=== PATIENT | male | born 1965 | race Caucasian/White ===

== ENCOUNTER 2024-07-27 22:54 | Emergency (ER) | payer OTHER, SELFPAY ==
[2024-07-27 22:55] VITALS: BP 116/83; PULSE 117; RESP 15; TEMP 36.6; O2SAT 99; BMI 19.7
--- NOTE | 2024-07-27 23:08 | RAD_ITS ---
INDICATION: pain FELT A POP IN LAT RT WRIST AT WORK, PAIN WHEN MOVING THUMB. HX RT WRIST ORIF X 29 YEARS AGO EXAMINATION/TECHNIQUE: X-RAY - RIGHT XR Hand Min 3 Views 3 VIEWS COMPARISON: No relevant prior comparison study available FINDINGS: BONES: Surgical hardware plate and side screws distal radius old fracture. No acute fracture demonstrated. JOINTS: No dislocation. SOFT TISSUES: Unremarkable. RAD/Hand Min 3 Views IMPRESSION: No evidence of fracture. ORIF distal radius fracture. Electronically Signed: Mara Feliciano MD at 23:46 EST ,
--- NOTE | 2024-07-27 23:08 | RAD_ITS ---
INDICATION: pain FELT A POP IN LAT RT WRIST AT WORK, PAIN WHEN MOVING THUMB. HX RT WRIST ORIF X 29 YEARS AGO EXAMINATION/TECHNIQUE: X-RAY - RIGHT XR Wrist Min 3 Views 3 VIEWS COMPARISON: No relevant prior comparison study available FINDINGS: BONES: Surgical hardware with plate and sidescrews in the distal radius transfixing an old healed distal radius fracture. No acute fracture demonstrated. Tiny sliver density adjacent to the base of the first metacarpal ulnar aspect likely soft tissue calcification, tiny avulsion fracture less likely. Mild joint space narrowing and subchondral sclerosis at the radiocarpal joint. JOINTS: No dislocation. SOFT TISSUES: Unremarkable. RAD/Wrist min 3 Views IMPRESSION: No evidence of acute fracture. ORIF distal radius fracture. Electronically Signed: Mara Feliciano MD at 23:45 EST ,
--- NOTE | 2024-07-28 00:39 | EDS_ITS ---
HPI History of Present Illness Chief Complaint: Upper Extremity Injury Informant: patient Narrative Narrative: Patient is a 58-year-old male with no significant past medical history. He states he is right-hand dominant. 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 He states while he was doing this he felt a pop. He states he noticed pain and swelling in the wrist and now has difficulty flexing his thumb. He denies any numbness or tingling or any other injury. However based on concern for potential fracture or tendon i njury he presents to the hospital for evaluation. Of note the patient does state he fractured his right forearm roughly 30 years ago which required plating. [facility] Medical History (Updated 07/28/24 @ 00:[address] Abdirizak Kerns, ) Hx of fracture of arm Home Medications ?Medication ?Instructions ?Recorded ?Last Taken ?Type NK 07/27/24 Unknown History Allergy/AdvReac Type Severity Reaction Status Date / Time No Known Allergies Allergy Verified 07/27/24 22:54 Social History Smoking Status: Current every day smoker tobacco type: cigarettes ROS ROS ED Constitutional Constitutional ED: Denies chills or fever(s) ENT ENT ED: Denies sore throat Cardiovascular Cardiovascular: Denies chest pain Respiratory/Chest Respiratory/Chest: Denies cough or dyspnea Gastrointestinal Gastrointestinal: Denies abdominal pain, diarrhea, nausea or vomiting Musculoskeletal Musculoskeletal: Reports other Details: Positive right thumb/wrist pain Integumentary Denies Abrasions or rash Neurologic Neurologic: Denies headache(s) or paresthesias Hematologic/Lymphatic Hematologic/Lymphatic: Denies easy bleeding or easy bruising EXAM Physical Exam Const Vital Signs: 07/27/24 22:55 Temperature 97.9 F Temperature Source Temporal Pulse Rate 117 H Respiratory Rate 15 Blood Pressure 116/83 H Blood Pressure Mean 94 Pulse Ox 99 Oxygen Delivery Method Room Air Positive well nourished and well developed General Appearance ED: well developed HEENT HEENT Narrative: Normocephalic atraumatic Eyes PERRL and EOMs intact bilaterally Neck full ROM and supple Resp normal respiratory effort and clear to auscultation bilaterally Cardio regular rate and regular rhythm Extremity Extremity Narrative: Right upper extremity is neurovascularly intact. Patient does have mild soft tissue swelling along the midportion of the right wrist on the volar side. There is mild pain with palpation at this site. There is no obvious bony deformity or joint effusion. The patient is able to perform opposition with his right thumb. However he cannot flex the thumb from the DIP joint which is concerning for a flexor tendon injury. Remainder of the exam is normal Neuro oriented x3 and CN's II-XII intact bilaterally Sensorium / Orientation: alert Psych mental status grossly normal Skin no rashes or lesions noted Trauma: Negative for no lacerations or abrasions MDM MDM MDM Narrative Medical decision making narrative: Patient presented to the ER with report of sudden onset pain and now lack of motion after having a pop sensation. There is concern for fracture versus dislocation versus flexor tendon injury and so therefore x-rays were obtained. X-rays revealed his previous ORIF but did not show fracture dislocation or retained foreign body. Physical exam is consistent with damage to the flexor Pollicis brevis. The case was discussed with plastic/hand surgeon Dr. Mena. As the patient is closed and neurovascular intact without signs of compartment syndrome or bony abnormality there is no need for emergent intervention. He recommends the patient be seen in his office so we can discuss potential surgical intervention over the next 7 days. The patient was placed in a thumb spica splint for stabilization and informed of his need to follow-up with Dr. Mena so that he can regain full function of his thumb. Patient understands the urgency of the follow-up but as he is closed and neurovascularly intact without acute bony injury or signs of infection he is otherwise safe for discharge History & Record Review Discussion w/independent historian: Patient Radiography Diagnostic Testing: Clinical Impression(s) from Imaging Studies Hand X-Ray 07/27/24 23:08 IMPRESSION: No evidence of fracture. ORIF distal radius fracture. Electronically Signed: Mara Feliciano MD at 23:46 EST , Wrist X-Ray 07/27/24 23:08 IMPRESSION: No evidence of acute fracture. ORIF distal radius fracture. Electronically Signed: Mara Feliciano MD at 23:45 EST , X-ray of the right hand and the right wrist as interpreted by the emergency medicine physician reveals the previous hardware to be intact and in place without obvious fracture or dislocation or foreign body Discharge Plan Triage Chief Complaint: Upper Extremity Injury ED Provider: Abdirizak Kerns Dx/Rx/DC Orders Clinical Impression: Flexor tendon rupture of hand Instructions: ED Tendon Rupture, Finger Prescriptions: No Action NK Primary Care Provider: Care Physician,No Primary Referrals: Shelton Mena MD [Med Staff - Active Staff] - Care Physician,No Primary [Primary Care Provider] - Activity Restrictions/Additional Instructions: Wear your thumb spica brace for stabilization. Follow-up with Dr. Mena as you will most likely need surgery to reattach your flexor tendon within the next week. Return to the ER should you have any further concerns Print Language: Andorran Disposition Disposition: Home, Self Care Discharge Date/Time: 07/28/24 01:10
== END 2024-07-28 01:10 | disposition home or self-care (01) ==
PROVIDERS: Emergency Provider Emergency Medicine; Visit Provider Emergency Medicine
DX: S66.011A Strain of long flexor muscle, fascia and tendon of right thumb at wrist and hand level, initial encounter (principal); X50.1XXA Overexertion from prolonged static or awkward postures, initial encounter; Y99.0 Civilian activity done for income or pay; F17.210 Nicotine dependence, cigarettes, uncomplicated
CPT/HCPCS: 73110; 73130; 99283

== ENCOUNTER → 2024-07-28 | Outpatient (CLI) | payer OTHER, SELFPAY ==
--- NOTE | 2024-07-28 14:20 | RAD_ITS ---
STUDY: X-RAY - ORBITS REASON FOR EXAM: Male, 58 years old. Ruleout Metal eyes for MRI TECHNIQUE: 2 view(s) of the orbits were obtained. COMPARISON: None. FINDINGS: Normal bilateral orbits without a metallic orbital foreign body. Normal visualized facial bones. Normal paranasal sinuses. The soft tissue structures are unremarkable. RAD/Orbits for Foreign Body IMPRESSION: 1. No demonstrated metallic orbital foreign body. The patient is cleared for an MRI examination. Electronically Signed: Angel Gonzalez MD at 14:59 EST ,
[2024-07-28 15:09] LABS: Anion Gap 6 (5-15); BUN 12 mg/dL (7-18); BUN/Creat Ratio 11.8 RATIO (10-20); Chloride 104 mmol/L (98-107); Creatinine, Serum 1.02 mg/dL (0.70-1.30); EST Glomerular Filtration Rate 80 mL/min (>60); Est Glom Filt Rate - Afr Amer 96 mL/min (>60); Glucose 101 mg/dL (74-106); Potassium 3.9 mmol/L (3.5-5.1); Sodium Level 137 mmol/L (136-145)
== END | disposition home or self-care (01) ==
PROVIDERS: Referring Provider Surgery Plastic and Reconstructive Surgery; Visit Provider Surgery Plastic and Reconstructive Surgery
DX: S66.819A Strain of other specified muscles, fascia and tendons at wrist and hand level, unspecified hand, initial encounter (principal); T15.90XA Foreign body on external eye, part unspecified, unspecified eye, initial encounter; X58.XXXA Exposure to other specified factors, initial encounter
CPT/HCPCS: 36415; 70030; 80048

== ENCOUNTER → 2024-07-29 | Outpatient (CLI) | payer OTHER, SELFPAY ==
--- NOTE | 2024-07-29 07:03 | MRI_ITS ---
STUDY: MRI UPPER EXTREMITY RIGHT FOREARM WITH AND WITHOUT CONTRAST REASON FOR EXAM: Male, 58 years old. Tendon Rupture, PT UNABLE TO MOVE THUMB TECHNIQUE: Standardized fat and water weighted pulse sequences were obtained in all 3 orthogonal planes, pre-and post contrast administration. IV 15CC Clariscan was administered for the contrast portion of the examination. COMPARISON: X-ray hand and wrist July 27, 2024 FINDINGS: There is susceptibility artifact associated with fixation plate and screws in the distal radius traversing healed fracture. There is fluid in the sheath of the flexor pollicis longus tendon. There is full-thickness tear at the level of the carpometacarpal articulation, series 10 images 8 and 9. Normal subcutis adipose space, without subcutis adipose space edema. There is no solid, cystic or lipomatous mass lesion. Normal extensor muscles and tendons of the forearm and wrist. Normal interosseous membrane. Normal radius and ulna, without a periosteal, cortical, or cancellous marrow abnormality. There is no abnormal contrast enhancement. MRI/Upper Ext No Joint W/WO Cont IMPRESSION: Flexor pollicis longus tendon tear. Electronically Signed: Thai Robertson MD at 10:15 EST ,
== END | disposition home or self-care (01) ==
LOC: MRI 06:54
PROVIDERS: Referring Provider Surgery Plastic and Reconstructive Surgery; Visit Provider Surgery Plastic and Reconstructive Surgery
DX: S66.811A Strain of other specified muscles, fascia and tendons at wrist and hand level, right hand, initial encounter (principal); S56.011A Strain of flexor muscle, fascia and tendon of right thumb at forearm level, initial encounter; X58.XXXA Exposure to other specified factors, initial encounter
CPT/HCPCS: 73220; A9575; A4216

== ENCOUNTER 2024-08-01 11:39 | Day surgery (SDC) | payer BC, SELFPAY ==
[2024-08-01] VITALS (10 sets, daily range): BP systolic 116–136; BP diastolic 69–89; PULSE 82–90; RESP 16–18; TEMP 36.3–36.7; O2SAT 97–99; BMI 19.1
[2024-08-01] MEDS: 0.9% Normal Saline (1000mL) 1,000 ML 15 ML IV (12:15)
--- NOTE | 2024-08-01 12:30 | RAD_ITS ---
STUDY: X-RAY - RIGHT WRIST REASON FOR EXAM: Male, 58 years old. Intraoperative digital documentation images. TECHNIQUE: 6 intraoperative digital documentation view(s) of the wrist were obtained. COMPARISON: July 27, 2024 FINDINGS: Intraoperative digital images show removal of plate and screw fixation of the distal radius. 20 images acquired. 7 images saved. Total exposure time 33 seconds. Longest exposure time 7 seconds. Total DAP 3.7759 cGy/cm2 Total Air Kerma 0.2248 mGy. RAD/Wrist 2 Views IMPRESSION: Intraoperative digital documentation views. Electronically Signed: Jorge Echevarria MD at 17:24 EST ,
--- NOTE | 2024-08-01 12:40 | PCM.PRE.AN2 ---
ASA Classification* ASA Classification ASA Classification: 2 Assessment & Plan Anesthesia* Anesthesia Assessment Anesthesia Assessment: Discussed sedation and/or anesthesia options, risks, benefits, and alternatives with patient/parents/legal guardian/POA. Questions invited. The patient/parents/legal guardian/POA seems to understand and agrees to proceed with anesthesia plan. Reviewed the physical assessment, medical history, allergy history and patient home medications list prior to surgery/procedure/anesthetic and documented any changes. Performed airway and anesthesia risk assessments. Anesthesia Type Anesthesia Type: General History Source History Obtained from:: Patient and Chart Anesthesia Focused Assessment* Temperature: 98.1 F Pulse Rate: 82 Blood Pressure: 135/89 Respiratory Rate: 16 Pulse Ox: 97 Oxygen Delivery Method: Room Air Airway Assessment Mouth opens: >3 cm Mallampati Score: III Teeth Condition: Dentures (Patient has full upper and lower dentures. They are out.) Neck Range of motion (ROM): Full ROM Focused Labs Anesthesia Preop lab: CBC CHEMISTRY Potassium 3.9 mmol/L (3.5-5.1) 07/28/24 14:11 Sodium 137 mmol/L (136-145) 07/28/24 14:11 BUN 12 mg/dL (7-18) 07/28/24 14:11 Creatinine 1.02 mg/dL (0.70-1.30) 07/28/24 14:11 Glucose 101 mg/dL (74-106) 07/28/24 14:11 COAG Pre-Assessment Diagnosis/Proposed Procedure Planned Operative Procedure(s): (R) Right wrist hardware removal, Repair of flexor tendon to thumb. 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 When Was Last Pacemaker Check QUESTION #4 FULL TEXT: You/Your Family Experience fever (hyperthermia) with Anesthesia Last Oral Intake Last Oral intake: Last Oral Intake NPO since 08:00 08/01/24 12:08 Meds taken in AM with sips of water? Meds patient instructed to take am of surgery Any additional information?: Yes NPO since: 08:00 (Patient water at 8 AM.) Meds taken in AM with sips of water?: No PONV PONV - pharmacy graduate intern: PONV - pharmacy graduate intern Female No 07/31/24 08:18 HX of Motion Sickness No 07/31/24 08:18 HX of N/V After Surgery No 07/31/24 08:18 Non-Smoker No 07/31/24 08:18 Duration of Surgery greater Yes 07/31/24 08:18 than 60 minutes Number of Risk Factors 1 07/31/24 08:18 PONV Score Low Risk 07/31/24 08:18 Height & Weight Height & Weight: Anesthesia: Height & Weight Height 6 ft 2 in 08/01/24 12:08 Weight: 67.585 kg 08/01/24 12:08 Body Mass Index (BMI) 19.1 08/01/24 12:08 Respiratory Assessment Respiratory Assessment - pharmacy graduate intern: Respiratory Tract Infection Hx - pharmacy graduate intern Hx Respiratory Tract Infection No 07/31/24 08:18 Any additional information?: Yes Hx Respiratory Tract Infection: Yes (Patient has a chronic cough. No recent infections.) STOP Sleep Apnea STOP Sleep Apnea - pharmacy graduate intern: STOP Sleep Apnea - pharmacy graduate intern Hx Hypertension No 07/31/24 08:18 Hx Sleep Apnea No 07/31/24 08:18 CPAP BIPAP Do you snore loudly (louder Yes 07/31/24 08:18 than talking or can be heard Do you often feel tired/ No 07/31/24 08:18 fatigued/ sleepy during daytime? Has anyone observed you stop No 07/31/24 08:18 breathing during sleep? STOP Results Negative 07/31/24 08:18 QUESTION #5 FULL TEXT : Do you snore loudly (louder than talking or can be heard through closed doors)? Tobacco Use History Tobacco Use History - pharmacy graduate intern: Tobacco Use History - pharmacy graduate intern Tobacco Use Smoking Status Current every day smoker 07/31/24 08:18 Hx Tobacco Use Yes 07/31/24 08:18 Years Smoking Packs Smoked per Day Smoking Cessation Date was within the last 15 years Hx Smoking Cessation Date Hx Smoking Cessation Counseling Any additional information?: Yes Smoking Status: Current every day smoker (Patient did not smoke today.) Hematologic Medial History Hematologic Hx - pharmacy graduate intern: Hematologic Medical Hx - sonography technologist Hx of Blood Transfusion No 07/31/24 08:18 Hx of Transfusion in last 3 No 07/31/24 08:18 Months Date of Last Transfusion (if within last 3 months) Ever experience any problems No 07/31/24 08:18 with transfusion(s)? Specify any problems Hx of Preganancy in last 3 N/A 07/31/24 08:18 Months Nurse Filling Out Transfusion MGRIFFITH 07/31/24 08:18 & Questions: Date: 07/31/24 07/31/24 08:18 Time: 08:21 07/31/24 08:18 Patient unable to answer at this time (ie. confused, unrespo /Reproduction History /Reproductive History - pharmacy graduate intern: /Reproductive Hx- pharmacy graduate intern Hx Now Gestational Age (in weeks): EDC: Hx Hx Para Hx Section SAB Active Medications Active Medications: Current Medications Generic Name Dose Route Start Last Admin Trade Name Freq PRN Reason Stop Dose Admin Sodium Chloride 1,000 mls @ 15 mls/hr 08/01/24 11:45 08/01/24 12:15 IV 08/07/24 01:04 15 mls/hr .Q48H ISAAC Administration Protocol [facility] Medical History Wears glasses Wears dentures History of alcohol abuse Injury of head and neck Difficulty swallowing Heartburn Gastric reflux Smoker Chronic cough Leg cramps Vision problems Hearing problem Anxiety Arthritis Hx of fracture of arm Home Medications ?Medication ?Instructions ?Recorded ?Last Taken ?Type acetaminophen 500 mg capsule 500 mg PO Q6H PRN pain 07/31/24 Unknown History loratadine 10 mg tablet (Claritin) 10 mg PO DAILY 07/31/24 Unknown History Allergy/AdvReac Type Severity Reaction Status Date / Time No Known Allergies Allergy Verified 08/01/24 12:08 Family History Mother Arthritis Diabetes Surgical History History of surgery History of eye surgery History of surgery on wrist Social History Smoking Status: Current every day smoker tobacco type: cigarettes Review of Systems (Anesthesia) ROS Narrative System reviewed and no additional complaints, except as documented.
--- NOTE | 2024-08-01 13:30 | FORE_PTH ---
PATIENT: ROMERO TORO LOC: [facility] [place] U#:[id number] AGE/SX: 58/M ROOM: RE08/01/[address]: Dr. Shelton Mena MD : 1965 BED: DIS: 08/01/2024 SPEC #: [id number] RECD: 08/01/24 18:36 STATUS: ENZO ALANNA #: [id number] MASSIEL: 08/01/24 13:[address]: Shelton Mena DEPT: SURGICAL PATHOLOGY RECD BY: Nora Breen ENTERED: 08/02/24 09:02 SP TYPE: FOREIGN B FRANTZ DR: No Primary Care Phys Tissues: FOREIGN BODY Procedures: Surgery Specimen Level I HEADER OPERATION: Right wrist hardware removal, repair of flexor tendon to thumb PRE-OP DIAGNOSIS: Rupture of flexure tendon of thumb, flexor tendon rupture of hand TISSUE SUBMITTED: Right wrist hardware - gross examination GROSS DIAGNOSIS Right wrist hardware: Orthopedic hardware, clinically from right wrist (gross only). CHARLENE. 08/02/2024 MICROSCOPIC DESCRIPTION Slides are reviewed. GROSS DESCRIPTION Received in fixative is one container labeled with the patient's name and designated Right wrist hardware. The specimen consists of metallic hardware consisting of six screws, three of them measuring 1.9cm in length and 0.2cm in diameter and flat metallic head measures 0.5cm in diameter and other three screws measuring 2.4cm in length and 0.2cm in diameter and flat metallic head measures 0.5cm in diameter. Also present in the container is a metallic plate with multiple holes measuring 7.2 cm in length and 1.0 to 2.0cm in width and 0.1cm in thickness. The specimen is for gross identification only. 08/02/2024 CPT:55498
--- NOTE | 2024-08-01 13:48 | HP.PCM.SX_ITS ---
HPI - General HPI Narrative Rafal Louis is a delightful 58-year-old male who is right-hand dominant and has a remote history (30 years ago) of a right distal radius fracture from softball that was treated with open reduction internal fixation with a volar plate who presents today as a referral from the emergency department (seen last night, 27 July 2024) for evaluation of a right thumb flexor digitorum profundus rupture. Patient was at work (works at [employer]) using a screwdriver and felt a pop in his wrist. No history of inflammatory arthritis. He was not having any pain before this problem. He is now having some pain in his base of thumb and wrist, and has noticed a slight amount of swelling. He is a half a pack a day smoker (discussed smoking cessation and wound healing problems with smoking). The patient reports that they do not have any personal or family history of bleeding or clotting disorders. No personal or family history of problems with anesthesia. Current Encounter (DATE OF SURGERY H&P UPDATE): I saw and examined the patient this morning in pre-operative holding. We discussed risks and benefits of today's surgery and they would like to proceed. NO CHANGE in health history since last seen and evaluated. Ready to proceed with surgery. [facility] Medical History Wears glasses Wears dentures History of alcohol abuse Injury of head and neck Difficulty swallowing Heartburn Gastric reflux Smoker Chronic cough Leg cramps Vision problems Hearing problem Anxiety Arthritis Hx of fracture of arm Home Medications ?Medication ?Instructions ?Recorded ?Last Taken ?Type acetaminophen 500 mg capsule 500 mg PO Q6H PRN pain 07/31/24 Unknown History loratadine 10 mg tablet (Claritin) 10 mg PO DAILY 07/31/24 Unknown History Allergy/AdvReac Type Severity Reaction Status Date / Time No Known Allergies Allergy Verified 08/01/24 12:08 Family History Mother Arthritis Diabetes Surgical History History of surgery History of eye surgery History of surgery on wrist Social History Smoking Status: Current every day smoker (Patient did not smoke today.) tobacco type: cigarettes Vital Signs Vital Signs Vital Signs: 08/01/24 12:08 08/01/24 12:08 08/01/24 12:46 Temperature 98.1 F 98.1 F Temperature Source Temporal Pulse Rate 82 82 Respiratory Rate 16 16 Respiratory Pattern Normal Blood Pressure 135/89 H 135/89 H Blood Pressure Mean 104 Blood Pressure Source Monitor Blood Pressure Position Semi-Fowlers Blood Pressure Location Left Arm Pulse Ox 97 97 Oxygen Delivery Method Room Air Room Air Weight Weight: 149 lb Body Mass Index (BMI) 19.1 Physical Exam Narrative Right Upper Extremity Inspection: Well healed scars from direct carpal tunnel incision and forearm incision over center of forearm (not Devon approach). Palpation: Slight tenderness to palpation in the palm/thenar eminence and volar wrist. Motor: Able to bend and extend all MP, PIP, and DIP joints except for his IP joint of the right thumb (no flexion). Thenar eminence fires with opposition, 5+ APB Sensory: Intact to light touch on the radial and ulnar borders. Vascular: Finger tips are warm and well perfused with <2 second capillary refill. Assessment & Plan Assessment/Plan (1) Rupture of flexor tendon of thumb: (2) Flexor tendon rupture of hand: PLAN: Plan INTERVAL H&P PLAN, DATE OF SURGERY: We will proceed with surgery today. I talked the patient extensively about the risks of surgery, including bleeding, infection, damage to surrounding structures, surgical site dehiscence and wound formation, need for wound care, need for repeat operations, wound secondary to smoking (discussed smoking cessation), failure to obtain the desired result (failure to restore flexion of the thumb at the IP joint), fracture of the distal radius after plate removal (need for revision surgery for the bone), hardware failure and partial hardware break leading to retained hardware, rerupture of the flexor tendon following repair, need for grafting with an interposition tendon graft (palmaris longus), DVT/PE (Caprini score is 3), and the risks of anesthesia including . The overall benefits and the alternatives of this surgery were also discussed. All of their questions were answered, and they agreed to proceed with surgery. I believe that the plate may have contributed to the rupture, or alternatively an osteophyte may have caused the rupture. Tentative plan is for plate removal (to prevent further injury) and FPL repair (primarily or with interposition graft using palmaris longus as needed). Plan for surgery within 1 week. May have ruptured 2/2 an osteophyte more distal to the plate at the carpal bone level. Unclear. Cannot say one way or another if the plate contributed, but to prevent further problems (and with exposure needed anyway for repair of the FPL), I will plan for plate removal. I will attempt primary repair, but if attritional rupture and diminutive tendon, may need interposition graft with PL. May also need tendon transfer from index or long (FDS to FDP). Patient understanding with plan and consented. Understands all risks, benefits, and alternatives discussed today for reconstruction. Patient happy with above plan. Understands risks of fracture following plate removal, risks of repair and/or interposition graft failure with possible need for tendon transfer (FDS from index or long to restore function).
[2024-08-01] MEDS: Cefazolin 2 GM in Syringe IV (14:03)
[2024-08-01] MEDS: Sugammadex Sodium 200 MG/2 ML VIAL IV (16:47)
[2024-08-01] MEDS: Lidocaine 1% /Epi 1:100 (20ml) 20 ML Vial (17:15)
[2024-08-01] MEDS: Bupiv/Epi 0.25% 30 ML Vial (17:16)
--- NOTE | 2024-08-01 17:44 | PCM.POST.ANE ---
Anesthesia: Postop Eval I Current Vital Signs Temperature: 97.3 F Pulse Rate: 90 Blood Pressure: 120/82 Respiratory Rate: 18 Pulse Ox: 99 Assessment Airway patent: Yes Spontaneous unlabored respirations: Yes nausea: No Vomiting: No Anesthesia Complication: No Fluid Hydration Crystalloid volume administer (ml): 2,000 Total IV fluid infused: 2,000 Progress Note Anesthesia document: Postop Eval 1 completed: Yes
[2024-08-01] MEDS: oxyCODONE 5 MG Tablet PO (18:23)
[2024-08-01] MEDS: Ketorolac 30 MG/ML Syringe IV (18:30)
--- NOTE | 2024-08-01 20:05 | POSTOPAN2_ITS ---
Anesthesia Postop Eval I Sum Postop Eval Completion status Anesthesia document: Postop Eval 1 completed: Yes Anesthesia Postop Eval I Summary Anesthesia Postop Eval I Summary: Anesthesia Postop Eval I: Assessment Summary Airway patent Yes 08/01/24 17:44 [email or web address] Spontaneous unlabored Yes 08/01/24 17:44 [email or web address] RIGGER.[email or web address] respirations Mental status nausea No 08/01/24 17:44 [email or web address] RIGGER.[email or web address] Vomiting No 08/01/24 17:44 [email or web address].[email or web address] Anesthesia Postop Eval I: Fluid Summary Crystalloid volume administer 2,000 08/01/24 17:44 [email or web address].[email or web address] (ml) Colloids volume administered ( ml) Blood Product volume administered (ml) Total IV fluid infused 2,000 08/01/24 17:44 [email or web address] RIGGER.CSIR Anesthesia Postop Eval I: Summary Notes Anesthesia Complication No 08/01/24 17:44 [email or web address].CSIR Anesthesia Complication Comment: Post-operative progress note Anesthesia: Postop Eval II Evaluation Mental status: Awake and Calm Pain Level: 1 nausea: No Vomiting: No Complications Anesthesia Complication: No
--- NOTE | 2024-08-01 20:05 | PCM.POSTANE2 ---
Anesthesia Postop Eval I Sum Postop Eval Completion status Anesthesia document: Postop Eval 1 completed: Yes Anesthesia Postop Eval I Summary Anesthesia Postop Eval I Summary: Anesthesia Postop Eval I: Assessment Summary Airway patent Yes 08/01/24 17:44 INSTRUCTIONAL TECHNOLOGY TEACHER.CSIR Spontaneous unlabored Yes 08/01/24 17:44 INSTRUCTIONAL TECHNOLOGY TEACHER.CSIR respirations Mental status nausea No 08/01/24 17:44 INSTRUCTIONAL TECHNOLOGY TEACHER.CSIR Vomiting No 08/01/24 17:44 INSTRUCTIONAL TECHNOLOGY TEACHER.CSIR Anesthesia Postop Eval I: Fluid Summary Crystalloid volume administer 2,000 08/01/24 17:44 INSTRUCTIONAL TECHNOLOGY TEACHER.CSIR (ml) Colloids volume administered ( ml) Blood Product volume administered (ml) Total IV fluid infused 2,000 08/01/24 17:44 INSTRUCTIONAL TECHNOLOGY TEACHER.CSIR Anesthesia Postop Eval I: Summary Notes Anesthesia Complication No 08/01/24 17:44 INSTRUCTIONAL TECHNOLOGY TEACHER.CSIR Anesthesia Complication Comment: Post-operative progress note Anesthesia: Postop Eval II Evaluation Mental status: Awake and Calm Pain Level: 1 nausea: No Vomiting: No Complications Anesthesia Complication: No
--- NOTE | 2024-08-02 06:35 | OP.PCM_ITS ---
Operative Report (Standard) Operative Information Date of Procedure: 08/01/24 Pre-Operative Diagnosis: Right upper extremity flexor pollicis longus (FPL) rupture at the wrist level Post-Operative Diagnosis: Same Surgery/Procedure Performed: 1) Right distal radius volar plate removal (73119) 2) Right wrist open carpal tunnel release (81294) 3) Right thumb A1 tri release (CPT 79815) 4) Right flexor pollicis longus repair with palmaris tendon interposition graft (CPT 61613) buying intern: Yes Child Support Specialist: Bhakti Mar Tasks completed by fundraising assistant: Retracting Type of Anesthesia: General (10 cc of 0.25% Marcaine with 1:200,000 epinephrine ) RN Documented Start/Stop Times: Operation Date: 08/01/24 13:30 Case Time Into Pre-Op 08/01/24 11:44 Anesthesia Start 08/01/24 14:03 Into Room 08/01/24 14:03 Procedure Start 08/01/24 14:25 Procedure End 08/01/24 17:26 Anesthesia End 08/01/24 17:39 Out of Room 08/01/24 17:39 Into Recovery 08/01/24 17:40 Into Phase II Recovery 08/01/24 18:15 Out of Recovery 08/01/24 18:15 Out of Phase II 08/01/24 19:42 Procedure Start Time: 14:25 Procedure Stop Time: 17:26 Select all DRAINS/GRAFTS/IMPLANTS that apply: None Estimated Blood Loss: 10 cc Specimen collected: Yes Description of specimen(s) removed: Volar plate with 6 screws Description of surgery: Indications: Raafl Louis is a 58 YO male with past medical history of a right distal radius fracture open reduction and internal fixation ~30 years ago. On 27 Jul 2024, the patient felt a pop in his right wrist and was unable to bend his thumb interphalangeal joint. He was diagnosed with an FPL rupture. He presents today for plate removal and tendon reconstruction. He understands the risks, benefits, and alternatives to the procedure and would like to proceed. Procedure Details: Patient was correctly identified in preoperative holding and taken back to the operating room where he was administered general anesthesia. He was prepped and draped in sterile fashion and all proper timeouts were performed. A right arm tourniquet was applied. An Esmarch was used and the tourniquet was insufflated to 250 mmHg (tourniquet time was 1 hour 46-minutes total with 5-minute break at 1 hour). A volar Devon incision was used over the right flexor carpi radialis (FCR) tendon. Dissection was taken between the interval of the FCR and the radial artery. Within this interval was significant scarring and synovitis. There was no identifiable pronator quadratus at the base, and no clear flexor pollicis longus at this point. Scar was at the base of this interval and the plate was immediately below the scar. A [place] elevator was used to expose the plate with care taken to stay on the plate and elevate the scar tissue off of the plate. The screws and plate were removed from the distal radius and sent to pathology for gross identification. I then examined the distal radius under fluoroscopy and it appeared stable without any acute fractures. Then dissected ulnarly and was able to identify the palmar cutaneous branch of the median nerve approximately 5 cm from the wrist crease which was preserved and protected throughout the rest of the case. The rest of the median nerve was identified at the wrist and protected. Beneath the FCR at the wrist crease was an area of inflamed synovium which was dissected carefully. Within this scar and synovitis was the proximal stump of the flexor pollicis longus (FPL). It had frayed edges and a diminutive distal stump. Attention was then turned to finding the distal stump of the FPL. The MRI demonstrated that there may have been ruptured tendon at the carpometacarpal junction. There was no identifiable distal tendon at the wrist within the volar Devon incision despite taking the incision more distal around the FCR. I therefore made the decision to open a June incision over the thumb with care taken to preserve the neurovascular bundles. The A1 tri of the thumb was released. Subsequently, with care taken to preserve and protect the median nerve including the palmar cutaneous branch, I extended the volar Devon transversely across the wrist and into an open carpal tunnel incision to release the carpal tunnel with a 15 blade scalpel. I was unable to pass the distal stump of the tendon which was on the radial side of the carpal tunnel, and could be passed easily, through with assistance via the A1 tri incision, back to its [place] location proximally. The tourniquet was let down and the wounds were irrigated and washed out with copious amounts normal saline. Just as the proximal portion of the FPL tendon stump was frayed, the distal portion was also diminutive, atrophied, and frayed. These portions were resected with a 10 blade scalpel back to healthy tendon on the proximal and distal ends. A free interposition palmaris longus tendon graft was then placed using the right palmaris longus (PL) which was on the ulnar border the incision (PL was dissected and then cut). A Pulvertaft weave was performed distally with 3 passes using the tendon passer and 4-0 FiberWire to reinforce the passes. I then placed one suture proximally between the [place] FDP and the PL so as to assess and adjust the tension. Using a checkpoint nerve stimulator on , I was able to stimulate the muscle belly of the FDP. Once I was satisfied with the tension (thumb flexion with appropriate wresting position), I completed the Pulvertaft weave with 3 passes proximally using the tendon passer and 4-0 FiberWire to reinforce the passes. Hemostasis was obtained with bipolar electrocautery and medium vascular clips. The June incision and the carpal tunnel incision were both closed with 3-0 nylon horizontal mattress suture. The volar Devon incision was closed with 3-0 Vicryl deep dermal sutures followed by horizontal mattress 3-0 nylon sutures. 20 cc of 0.25% Marcaine with 1-200,000 epinephrine was used for a local block. Xeroform, Webril, and a dorsal blocking thumb spica splint was applied with plaster. Post-operative plan: F/u in the office on 04 Aug 2024, with plan to start flexor tendon protocol with occupational therapy. Keep splint on and dry until this time. Surgical Findings: Rupture of the FPL at the level of the radial carpal joint Complications Complications: No Admit VTE Documentation VTE Present on Admission: No VTE Mechan Device Prophylaxis: SCD's
== END 2024-08-01 19:42 | disposition home or self-care (01) ==
LOC: SDC 11:42 → AC 11:42
PROVIDERS: Referring Provider Surgery Plastic and Reconstructive Surgery; Visit Provider Surgery Plastic and Reconstructive Surgery
PROC: (CPT 26352; principal; 2024-08-01 13:15)
DX: S56.211A Strain of other flexor muscle, fascia and tendon at forearm level, right arm, initial encounter (principal); S56.011A Strain of flexor muscle, fascia and tendon of right thumb at forearm level, initial encounter; X50.1XXA Overexertion from prolonged static or awkward postures, initial encounter; Y99.0 Civilian activity done for income or pay; Z71.6 Tobacco abuse counseling; F17.210 Nicotine dependence, cigarettes, uncomplicated
CPT/HCPCS: 26352; 64721; 26055; 20680; 01810; 73100; 76000; 88300; A4648; J2405

== ENCOUNTER 2024-10-26 11:30 | Outpatient (RCR) | payer BC, SELFPAY ==
--- NOTE | 2024-08-04 12:12 | HP.OTEVAL_ITS ---
Patient's Visit Information Visit Information Visit Information: ROMERO TORO is a 58 year old M, referred to Occupational Therapy by Dr. Shelton Mena MD, with a diagnosis of right FPL rupture. Date of Evaluation: 08/04/24 Occupational Therapist: Lesvia Patterson, GALLITO/Bonnie, CHT Subjective Subjective: This 58-year-old male was seen for OT eval with dx of right strain of flexor muscle, fascia and tendon FPL tendon at wrist level- pt states on Jul.27 while working he felt a snap in his wrist and realized his thumb was not working right. pt works at [employer]. pt states he was seen by Dr. Mena who recommended plate removal of old right distal radius ORIF and repair of the FPL. pt underwent sx. 08/01/24. procedure right FPL rupture at wrist level, right distal radius volar plate removal- right CTR, right thumb A1 tri release right FPL repair with palmaris tendon interposition graft . today pt demo with soft sx splint on - min. or trace swelling incision intact and healthy Pain right hand: Current Pain Intensity: 1 Pain Intensity Range: 0 and 1 ROM ROM Comments: PROM of right thumb IP 40* MP 30* no active ROM tested at this date. Strength Strength Comments: will test later date Sensation Sensation Comments: denies Quick DASH-Disab of Arm,Shoulder& Hand Quick DASH Score: 81.6650 Goals Goal:100% adherence to protocol: Yes Comment: following guidelines of FPL repair pg 226 in [facility] guidlines book Goal:Daily scar massage when approriate: Yes Goal:ROM equal to unaffected hand: Yes Goal:Photographic Specialist/Pinch strength at least 75% of unaffected hand: Yes Comment: will not initiate until week 8 or otherwise indicated by Goal:No pain with affected hand use: Yes Goal:Decrease scar hypersensitivity: Yes Rehabilitation General Assessment: Pt arrives 3 days s/p form FPL repair with use of palmaris tendon, right CTR and removal of volar plate. Pt demo need for skilled OT services 2x week for 12 weeks to return pt to functional use of right dominate hand. Today therapist khalida. custom orthosis ed, pt to use at all times. pt demo and communicated understanding- therapist ed. pt on edema control and guidelines of following FPL protocol. pt demo understanding and agree to POC. Rehabilitation Potential: Excellent Anticipated Interventions Anticipated Interventions: A/AAROM/PROM, Edema Control, Scar Care, Desensitization, Wound Care, Modalities, Orthoses, Joint Protection/Energy Conservation, Ergonomic Education and Education re Diagnosis Visit Plan Frequency: 2-3x /Week Duration: 3 Months General Plan: orthosis khalida. ed, pt on tendon healing. as well as use of orthosis at all times until pt is transitioned by protocol TEXT: Thank you for the opportunity to evaluate your patient. For Medicare and Medicare HMO plans, please review the plan of care and approve it. It will need to be FAXED BACK to us at [phone] for Medicare purposes. Please let me know if there are questions or concerns regarding this plan of care. Physician Signature: Date:___
--- NOTE | 2024-08-28 14:27 | HP.OTREVAL ---
Re-Evaluation Intro: Dr. Shelton Mena MD, It has been my pleasure to treat ROMERO TORO over the last 8 visits for right FPL rupture. Please see the progress note below for an update on the occupational therapy plan of care! Subjective Subjective: pt arrives 3 weeks 6 days s/p from a FPL repair and ORIF removal pt states he is in orthosis only when out of home and at night- not in splint much anymore- pt reports compliance of wrist ext and thumb flexion ex- Objective Objective/Function: right thumb IP flexion pt demo with scar adhesions limiting IP flexion with CMC and MP at 0* IP flexion is 25* with CMC in slight ext with MP flexion at 30* pt demo with a IP flexion of 40* Therapy started pt on blocking ex and pt can get more motion- pt was compensating with CMC and MP flexion to get his IP flexion- therapist ed. pt on proper position to get most out of FPL Plan Plan Frequency: 2-3x /Week Duration: 3 Months Plan: PROM of IP and MP to keep FPL from scaring Goals Goals Patient Goals: Use Hand/Wrist/Arm Normally Again Goal:100% adherence to protocol: Yes Goal:Daily scar massage when approriate: Yes Goal:ROM equal to unaffected hand: Yes Goal:Air Conditioning Manager/Pinch strength at least 75% of unaffected hand: Yes Goal:No pain with affected hand use: Yes Goal:Decrease scar hypersensitivity: Yes Anticipated Interventions Anticipated Interventions Anticipated Interventions: A/AAROM/PROM, Edema Control, Scar Care, Desensitization, Wound Care, Modalities, Orthoses, Joint Protection/Energy Conservation, Ergonomic Education and Education re Diagnosis Re-Evaluation Ending Re-evaluation ending: Please do not hesitate to contact me at [phone] by phone or if you have questions or concerns regarding this new plan of care! Sincerely, Lesvia Patterson, OTR/L, CHT
--- NOTE | 2024-10-19 12:33 | OTREVAL_ITS ---
Re-Evaluation Intro: Dr. Shelton Mena MD, It has been my pleasure to treat ROMERO TORO over the last 23 visits for right FPL rupture. Please see the progress note below for an update on the occupational therapy plan of care! Subjective Subjective: pt arrives to session 11 weeks 6 days s/p from FPL repair with ORIF removal Pt states soreness, nothing bad. Stated hand was inflamed over the weekend so pt decreased activity to reduce inflammation. Objective Objective/Function: -R primary substance abuse counselor strength 80# -R lateral pinch 16# -R Tripod- 18# -R wrist: 75/65 IP flexion 45 with opposition to LF IP flexion does reduce -with use- highest pain was 2- not very painful at all. -Scar is not sensitive anymore. possible some stitch festering - pt functional with strength and ROM - still smoking 1/2 a pk a day Plan Plan Frequency: 2-3x /Week Duration: 3 Months Visits in this POC: 3 months (2-3x week) Plan: cont. to strength as yeni Goals Goals Patient Goals: Use Hand/Wrist/Arm Normally Again Goal:100% adherence to protocol: Yes Goal:Daily scar massage when approriate: Yes Goal:ROM equal to unaffected hand: Yes Goal:Children'S Choir Director/Pinch strength at least 75% of unaffected hand: Yes Goal:No pain with affected hand use: Yes Goal:Decrease scar hypersensitivity: Yes Anticipated Interventions Anticipated Interventions Anticipated Interventions: A/AAROM/PROM, Edema Control, Scar Care, Desensitization, Wound Care, Modalities, Orthoses, Joint Protection/Energy Conservation, Ergonomic Education and Education re Diagnosis Re-Evaluation Ending Re-evaluation ending: Please do not hesitate to contact me at [phone] by phone or if you have questions or concerns regarding this new plan of care! Sincerely, Lesvia Patterson, OTR/L, CHT
--- NOTE | 2024-10-26 11:44 | HP.OTDCSUM ---
Discharge Summary D/C Summary: It has been my pleasure to treat ROMERO TORO under orders from Dr. Shelton Mena MD, for the diagnosis of right FPL rupture for a total of 25 visit(s). Please see the following information for a summary of their discharge status. Overall Improvement % Improvement: 95 Objective Objective/Function: -R harbour master strength 85# -R lateral pinch 18# -R Tripod- 18# -R wrist: 75/65 IP flexion 45 with opposition to LF, IP flexion does reduce. -with use- highest pain was 2- not very painful at all. -Scar is not sensitive anymore. pt functional with strength and ROM - still smoking 1/2 a pk a day Goals Patient Goals: Use Hand/Wrist/Arm Normally Again Goal:100% adherence to protocol: Yes Goal Progress: Goal Met Goal:Daily scar massage when approriate: Yes Goal Progress: Goal Met Goal:ROM equal to unaffected hand: Yes Goal Progress: Goal Met Goal:Turret Punch Operator/Pinch strength at least 75% of unaffected hand: Yes Goal Progress: Goal Met Goal:No pain with affected hand use: Yes Goal Progress: Goal Met Goal:Decrease scar hypersensitivity: Yes Goal Progress: Goal Met Plan Plan: D/C D/C Information Discharge Comments: pt was seen in OT for 25 sessions following a FDP repair and ORIF hardware removal. pt has regained ROM and strength to perform ADLs and IADLs at [facility]. pt states he is ready to go back to work. d/c sentence: If there are questions or concerns regarding this patient's occupational therapy, please fell free to call me at [phone]. Thank you for the referral of this patient. Sincerely, Lsevia Patterson, OTR/L, CHT
== END 2024-10-26 14:59 | disposition home or self-care (01) ==
LOC: OT 11:30
PROVIDERS: Referring Provider Surgery Plastic and Reconstructive Surgery; Visit Provider Surgery Plastic and Reconstructive Surgery
DX: S56.01 Strain of flexor muscle, fascia and tendon of thumb at forearm level (principal)
CPT/HCPCS: 97035; 97110; 97140; 97166; 97530; 97760